=== PATIENT | male | born 1945 ===

== ENCOUNTER 2018-09-08 07:40 | Day surgery (SDC) | payer MEDICARE ==
[2018-08-18 11:51] VITALS: BMI 39.9
[2018-09-08] MEDS ORDERED: Ciprofloxacin 400mg/200ml D5W 400 MG/200 ML BAG IVPB ONE (09:48)
[2018-09-08] MEDS ORDERED: Gentamicin 80 mg in 0.9% NS 160 MG/200 ML BAG IVPB ONE (09:48)
[2018-09-08] MEDS ORDERED: Lidocaine 2% Jelly (Uro-Jet) ONE (09:49)
[2018-09-08] MEDS ORDERED: Midazolam 2 MG/2 ML VIAL ONE (10:03)
[2018-09-08] MEDS ORDERED: Propofol 10 mg/ml Inj (20 ML) ONE (10:04)
--- NOTE | 2018-09-08 10:32 | PCM.SURG1 ---
Surgeon's Initial Post Op Note - Surgeon's Notes Surgeon: Nikki Basin Cleaner: Ashleigh Type of Anesthesia: General LMA, General Mask Anesthesia Administered By: staff Pre-Operative Diagnosis: BPH urinary retention Operative Findings: BPH CASPER Bladder calculi Post-Operative Diagnosis: BPH CASPER BLADDER CALCULI Operation Performed: cYSTO INSERTION TOLBERT Specimen/Specimens Removed: NA Estimated Blood Loss: EBL {In ML}: 0 Blood Products Given: N/A Drains Used: No Drains Post-Op Condition: Good Date of Surgery/Procedure: 09/08/18 Time of Surgery/Procedure: 10:31
[2018-09-08] MEDS ORDERED: HYDROmorphone 0.5 mg/0.5 ml ISec IVP PRN (10:36)
[2018-09-08 11:55] VITALS: BP 137/80; PULSE 73; RESP 18; TEMP 98; O2SAT 100
--- NOTE | 2018-09-08 21:14 | OP ---
PROCEDURE DATE: 09/08/2018 PREOPERATIVE DIAGNOSES: Urinary retention and benign prostatic hypertrophy. POSTOPERATIVE DIAGNOSES: Urinary retention, benign prostatic hypertrophy and large bladder calculus. PROCEDURE: Cystoscopy and insertion of Perry catheter. DESCRIPTION OF PROCEDURE: The patient was draped and prepped in the usual manner. He was cystoscoped with a #21 Storz panendoscope . The pendulous and membranous urethras were normal. The prostatic urethra showed trilobar hypertrophy of the prostate with significant residual prostatic tissue. The bladder was then entered atraumatically. There was a large bladder calculi and there was no evidence of urothelial tumors or stones. Based on the above findings, a #18 Perry catheter was inserted. The patient will be discharged with a leg bag to return next week for cystolitholapaxy. He has also been advised that needs to have a laser prostatectomy which will need to be done on a separate setting. Kvng Jordan MD
== END 2018-09-08 12:46 | disposition home or self-care (01) ==
LOC: C.SDS 07:40
PROVIDERS: ATTEND Urology
DX: R33.9 Retention of urine, unspecified (principal); R33.8 Other retention of urine; N21.0 Calculus in bladder; N40.1 Benign prostatic hyperplasia with lower urinary tract symptoms
CPT/HCPCS: 52000; A4358; J0744; J1580

== ENCOUNTER 2018-09-15 11:17 | Day surgery (SDC) | payer MEDICARE | END 2018-09-15 20:15 | disposition home or self-care (01) | LOC: C.SDS 11:17 | DX: N21.0 Calculus in bladder (principal); N40.1 Benign prostatic hyperplasia with lower urinary tract symptoms; N32.0 Bladder-neck obstruction; N13.8 Other obstructive and reflux uropathy; I10 Essential (primary) hypertension; E78.5 Hyperlipidemia, unspecified ==

== ENCOUNTER 2018-09-22 10:40 | Day surgery (SDC) | payer MEDICARE ==
[2018-08-18 11:51] VITALS: BMI 39.9
[2018-09-22] MEDS ORDERED: Ciprofloxacin 400mg/200ml D5W 400 MG/200 ML BAG IVPB ONE (12:09)
[2018-09-22] MEDS ORDERED: Lidocaine 2% Jelly (Uro-Jet) ONE (12:10)
[2018-09-22] MEDS ORDERED: Propofol 10 mg/ml Inj (20 ML) ONE (12:13)
[2018-09-22] MEDS: Gentamicin 80 mg in 0.9% NS 160 MG/200 ML BAG IVPB ONE ×2 (12:31→12:37)
[2018-09-22] MEDS ORDERED: HYDROmorphone 0.5 mg/0.5 ml ISec IVP PRN (13:38)
--- NOTE | 2018-09-22 13:54 | PCM.SURG1 ---
Surgeon's Initial Post Op Note - Surgeon's Notes Surgeon: Nikki Workforce Management Consultant: SURINDER Type of Anesthesia: General LMA Anesthesia Administered By: staff Pre-Operative Diagnosis: Urinary retention/hx calculi/BPH Operative Findings: BPH CASPER Bladder calculi fragments Post-Operative Diagnosis: same Operation Performed: Tulap/cystolithopaxy Specimen/Specimens Removed: stone fragments Estimated Blood Loss: EBL {In ML}: 25 Blood Products Given: N/A Drains Used: No Drains Post-Op Condition: Good Date of Surgery/Procedure: 09/22/18 Time of Surgery/Procedure: 13:55
[2018-09-22 15:40] VITALS: BP 125/71; PULSE 73; RESP 16; TEMP 97.5; O2SAT 97
--- NOTE | 2018-09-23 02:23 | OP ---
PROCEDURE DATE: 09/22/2018 PREOPERATIVE DIAGNOSES: Benign prostatic hypertrophy, urinary retention, and bladder calculi fragments. POSTOPERATIVE DIAGNOSIS: Benign prostatic hypertrophy, urinary retention, and bladder calculi fragments. PROCEDURE: Cystolitholapaxy and GreenLight laser of the prostate. SURGEON: Kvng Jordan MD DESCRIPTION OF PROCEDURE: Prior to the procedure, the patient was asked to sign a detailed informed consent. He is aware that there maybe stone fragments in the bladder and these need to be removed and he is willing to accept the risks of two procedures simultaneously. The patient was advised of all complications, consented to the risks and limitations and brought into the room. He was cystoscoped with the laser cystoscope. The pendulous urethra was normal. The prostatic urethra showed significant bladder outlet obstruction due to lateral lobe encroachment and a median lobe. The bladder was entered atraumatically. There was noted to be several fragments within the bladder remaining after lithotripsy of the very large stone last week. The larger fragments were fragmented using a grasping forceps and then the fragments were irrigated from the bladder. The bladder was visualized. There did not appear to be any fragments remaining. The grasping forceps removed and the working element for the laser was inserted. Laser fiber was inserted in the working element and vaporization of the prostate was begun at 11 o'clock and carried down to 6 o'clock with minimal bleeding. The left lateral lobe was vaporized in the similar fashion as well as the base and the roof tissue. No injury occurred to the verumontanum or external sphincter. The bladder was then checked. There was no visible stone fragments. The patient then had the bladder filled and a #24 three-way hematuria catheter was inserted and continuous irrigation was begun. It was inflated with normal amount of saline. The patient will be continued with tissue irrigation for 1 hour to clear any remaining fragments and then he will be discharged to return to our office tomorrow. Full instructions were given to the patient and the as well as prescription for antibiotics. Kvng Jordan MD
== END 2018-09-22 15:45 | disposition home or self-care (01) ==
LOC: C.SDS 10:40
PROVIDERS: ATTEND Urology
DX: N21.0 Calculus in bladder (principal); N40.1 Benign prostatic hyperplasia with lower urinary tract symptoms; R33.8 Other retention of urine; I10 Essential (primary) hypertension; E78.5 Hyperlipidemia, unspecified; E66.01 Morbid (severe) obesity due to excess calories
CPT/HCPCS: 52318; 52648; 88305; J0744; J1580